=== PATIENT | female | born 1970 | race Caucasian/White ===

== ENCOUNTER → 2018-12-09 07:59 | Outpatient (CLI) | payer OTHER, SELFPAY ==
[2018-12-02 09:21] VITALS: BMI 32.1
[2018-12-09 10:14] LABS: Hematocrit 35.7 % (37-47); Hemoglobin 11.5 g/dl (12.0-15.0); Mean Corp Hgb Conc 32.2 g/gl (32-36); Mean Corpuscular Hgb 26.6 pg (27.0-32.0); Mean Corpuscular Volume 82.4 fL (81-99); Mean Platelet Vol. 9.8 fl (6.2-12.0); Platelet Count 273 K/mm3 (150-450); RBC Distribution Width SD 42.6 fl (35.1-43.9); Red Blood Count 4.33 M/mm3 (4.2-5.4); White Blood Count 5.9 K/mm3 (4.4-11.0)
[2018-12-09 10:15] LABS: Scan Indicated on CBC? Y/N NO
[2018-12-09 10:32] LABS: Anion Gap 6 (5-15); BUN 12 mg/dL (7-18); BUN/Creat Ratio 15.3 RATIO (10-20); Calcium,Total 8.4 mg/dL (8.5-10.1); Chloride 107 mmol/L (98-107); Cholesterol 147 mg/dL (200); Creatinine, Serum 0.78 mg/dL (0.55-1.02); EST Glomerular Filtration Rate 84 mL/min (>60); Est Glom Filt Rate - Afr Amer 101 mL/min (>60); Glucose 96 mg/dL (74-106); High Density Lipoprotein 54 mg/dL; Iron 24 ug/dL (50-170); Potassium 4.2 mmol/L (3.5-5.1); Sodium Level 141 mmol/L (136-145); Triglycerides 78 mg/dL; Very Low Density Lipoprotein 16 mg/dL (5-40)
== END ==
PROVIDERS: Family Provider Family Medicine; PCP Family Medicine; Referring Provider Family Medicine; Visit Provider Family Medicine
DX: Z13.220 Encounter for screening for lipoid disorders (principal); D64.9 Anemia, unspecified; Z13.1 Encounter for screening for diabetes mellitus
CPT/HCPCS: 36415; 80048; 80061; 83540; 85027

== ENCOUNTER → 2018-12-28 07:25 | Outpatient (CLI) | payer OTHER, SELFPAY ==
[2018-12-02 09:21] VITALS: BMI 32.1
--- NOTE | 2018-12-28 07:28 | BI_ITS ---
MAMMOGRAPHY - BILATERAL SCREENING REASON FOR EXAM: Female, 48 years old. Routine annual screening examination. PERTINENT HISTORY: Non-contributory. TECHNIQUE: Digital bilateral breast mack (3D mammographic acquisition) in the CC and MLO projections. 2-D mediolateral oblique (MLO) and craniocaudad (CC) views of both breasts were obtained. CAD: Full Field Digital Mammography with Computer Added Detection was performed. COMPARISON: No comparison mammograms available at this time. If any prior films become available, an addendum to this report can be generated. FINDINGS: Breast Composition: There are scattered areas of fibroglandular density. There is a 5.4 mm x 4.8 mm well-defined nodule in the deep upper lateral portion of the right breast. This most likely represents a small cyst. Correlation with ultrasound is recommended. Small left benign appearing axillary lymph nodes. No other significant abnormalities are identified. BI/SCREEN MAMM (CAD) W/MACK BILAT IMPRESSION: 5.4 mm x 4.8 mm well-defined nodule in the right breast as described. Correlation with ultrasound is recommended. ASSESSMENT CATEGORY: BIRADS Category 0: Incomplete. Need additional imaging evaluation. A letter regarding these results will be sent to the patient by the facility within 30 days. Approximately 10% of breast cancers are not detected by mammography. A normal mammogram should not delay biopsy of a clinically suspicious abnormality. [id number] Electronically Signed: Kyree Bell, at 12:28 EDT , Service support ,
== END ==
PROVIDERS: Family Provider Family Medicine; PCP Family Medicine; Referring Provider Family Medicine; Visit Provider Family Medicine
DX: Z12.31 Encounter for screening mammogram for malignant neoplasm of breast (principal)
CPT/HCPCS: 77063; 77067

== ENCOUNTER → 2018-12-31 12:25 | Outpatient (CLI) | payer OTHER, SELFPAY ==
[2018-12-02 09:21] VITALS: BMI 32.1
--- NOTE | 2018-12-31 12:26 | US_ITS ---
STUDY: ULTRASOUND BREAST - RIGHT REASON FOR EXAM: Female, 48 years old. Abnormal screening mammogram. TECHNIQUE: Axial and longitudinal images of the RIGHT breast were performed with a high resolution ultrasound transducer. COMPARISON: Comparison is made with prior mammogram dated December 28, 2018. FINDINGS: RIGHT Breast: The upper mid and outer quadrants of the right breast were examined. There is a 9 mm x 9 mm x 4 mm cyst at the 9:00 position of the breast at 8 cm from nipple. Adjacent to this, there is a 7 mm x 11 mm by 5 mm cyst. This also evidence of a 5 mm x 5 mm x 4 mm cyst at the 10:00 position breast at 8 cm from the nipple. US/Breast Limited Unilateral IMPRESSION: 3 small cysts are seen in the upper outer aspect of the right breast. Routine mammographic follow-up is recommended. ASSESSMENT CATEGORY: BIRADS Category 2: Benign. A letter regarding these results will be sent to the patient by the facility within 30 days. Electronically Signed: Kyree Bell, at 9:47 EDT , Service support ,
== END ==
PROVIDERS: Family Provider Family Medicine; PCP Family Medicine; Referring Provider Family Medicine; Visit Provider Family Medicine
DX: R92.8 Other abnormal and inconclusive findings on diagnostic imaging of breast (principal)
CPT/HCPCS: 76642

== ENCOUNTER → 2019-05-26 | Outpatient (CLI) | payer OTHER, SELFPAY ==
[2018-12-02 09:21] VITALS: BMI 32.1
--- NOTE | 2019-05-26 09:48 | RAD_ITS ---
STUDY: X-RAY - RIGHT KNEE REASON FOR EXAM: Female, 49 years old. Knee pain TECHNIQUE: 4 view(s) of the knee. COMPARISON: None. FINDINGS: Normal visualized distal femur. Normal visualized proximal tibia and fibula. Normal proximal tibiofibular articulation. Normal medial femorotibial compartment. Normal lateral femorotibial compartment. Normal patellofemoral articulation. The soft tissue structures are unremarkable. RAD/Knee 4 or More Views IMPRESSION: Normal x-ray examination of the knee. Electronically Signed: Erica Contreras, at 18:07 EDT Tel , Service support ,
== END | disposition home or self-care (01) ==
LOC: MTRAD 09:46
PROVIDERS: Family Provider Family Medicine; PCP Family Medicine; Referring Provider Family Medicine; Visit Provider Family Medicine
DX: M25.561 Pain in right knee (principal)
CPT/HCPCS: 73564

== ENCOUNTER → 2019-05-31 07:18 | Outpatient (CLI) | payer SELFPAY ==
[2018-12-02 09:21] VITALS: BMI 32.1
--- NOTE | 2019-05-31 07:20 | MRI_ITS ---
HISTORY: Right knee pain. Pain is mostly on the back in the outside. Pain has been ongoing for 2 weeks. Lower hamstring. Pain as throbbing. Left knee surgery in 2011. EXAMINATION: MR Knee W/O Contrast TECHNIQUE: Multiplanar and multisequence MR images of the right knee. IV Contrast dosage and agent: No contrast. Eighth series. 203 images. COMPARISON: X-rays of the right knee from May 26, 2019 FINDINGS: BONE: Abnormal increased T2-weighted signal consistent with marrow edema is present within the lateral aspect of the medial portion of the tibial plateau, extending to the inferior surface of the medial tibial spine. Abnormal increased T2-weighted signal is present within the tibial plateau at the insertion of the posterior cruciate ligament with some hypointense signal on T1 and T2 weighted signal suggesting possible minimal fracture without displacement to that bone. JOINT: A small joint effusion is present. It does not herniate posteriorly. MUSCLES: Unremarkable. MENISCI: The lateral meniscus is minimally degenerated but intact. A horizontal tear is present through the posterior horn of the medial meniscus extending to the inferior articular surface. CRUCIATE LIGAMENTS: Anterior and posterior cruciate ligaments are intact. COLLATERAL LIGAMENTS: The lateral collateral ligament is normal. There is some edema within the origin of the medial collateral ligament with some fluid both deep and superficial to its fibers suggestive of a grade 1 injury. CARTILAGE: Articular cartilage is thinned throughout. , However, it does appear to cover all articular surfaces without denuding. OTHER SOFT TISSUES: A small amount of edema is present within the subcutaneous fat ventral to the patellar ligament MRI/Lower Ext Joint Only (Routine) IMPRESSION: Horizontal tear through the posterior horn of the medial meniscus. Overall mild cartilaginous thinning. Edema consistent with marrow contusion within the medial portion of the tibial plateau, but laterally under the medial tibial spine extending into the insertion of the posterior cruciate ligament. There may be tiny microfractures to the posterior central tibial plateau near the insertion of the PCL at 0252 Reported and signed by: Jatin Orozco MD Electronically Signed: Jatin Orozco MD at 2:51 EST Tel , Service support ,
== END ==
PROVIDERS: Family Provider Family Medicine; PCP Family Medicine; Referring Provider Family Medicine; Visit Provider Family Medicine
DX: M25.561 Pain in right knee (principal)
CPT/HCPCS: 73721

== ENCOUNTER 2019-08-12 17:00 | Outpatient (RCR) | payer OTHER, SELFPAY ==
[2018-12-02 09:21] VITALS: BMI 32.1
--- NOTE | 2019-07-14 18:04 | HP.PTEVAL ---
Patient's Visit Information ERWIN LAWRENCE is a 49 year old F referred to Physical Therapy by Piyush Silva MD with a diagnosis of R knee meniscal tear. Date of Evaluation: 07/14/19 Physical Therapist: Santana Potter PT, ATC - Visit Plan Frequency: 2-3x /Week Duration: 4-6 Weeks Plan: R knee strengthening, core strenghtening, bike, and HEP - Subjective Findings: Pt reports she tweaked her R knee about 2 months ago. Pt reports she had pain but the pain was not limiting to her. 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 Pt reports she has tweaked her R knee 3 times since the initial injury. Pt reports most of her pain is on the lateral posterior aspect of R knee. Pt reports she has had an MRI which revealed a meniscus tear, but not where her pain is at. No sleep difficulty secondary to pain. Pt reports increase walking and standing tends to increase her pain. - Pain R knee Pain Intensity (Out of 10): 1 Pain Intensity Range: 4 - Objective Neuro: B LE sensation is WNL to light touch. B patellar reflex= 2/3. Palpation: Pain on the posterior lateral aspect of R knee. Girth at joint line: B knees 43 cm. ROM: L knee 0-120 degrees. R knee 0-115 degrees. MMT: R knee flexion= 4/5. All other B LE measurements 5/5 throughout - Goals Goal 1:: Decrease R knee pain x 50% to aid with ambulation Goal Time Frame: 4-6 Weeks Goal 2:: Increase R knee strength x 1 grade to aid with sports Goal Time Frame: 4-6 Weeks Goal 3:: I with HEP Goal Time Frame: 4-6 Weeks - Rehabilitation Potential Physical Therapy Diagnosis: R knee pain, weakness, and limited ROM wsecondary to R knee meniscal tear Rehabilitation Potential: Good - Anticipated Interventions Patient/Client Instruction: Educate patient on: Condition, Plan of Care For the Purpose of:: To improve self management Therapeutic Exercise to Include: Strength training, Endurance training, Balance training, Dynamic Lumbar Stabilization For the Purpose of:: To decrease pain, To increase ROM, To improve muscle performance and motor function Cryotherapy (ice pack, ice massage): Yes For the Purpose of:: To decrease pain Thank you for the opportunity to evaluate your patient. For Medicare and Medicare HMO plans, please review the plan of care and approve it. It will need to be FAXED BACK to us at [phone] for Medicare purposes. For Medicare only, by signing this I certify the plan of care. Please let me know if there are questions or concerns regarding this plan of care. Physician Signature: Date:
--- NOTE | 2019-10-15 08:02 | HP.PT.NRP ---
ERWIN LAWRENCE was seen in my office for initial evaluation on 07/14/19. The following Plan of Care was established for this patient: Initial Frequency: 2-3x /Week Initial Duration: 4-6 Weeks Patient/Client Instruction: Educate patient on: Condition, Plan of Care For the Purpose of:: To improve self management Therapeutic Exercise to Include: Strength training, Endurance training, Balance training, Dynamic Lumbar Stabilization For the Purpose of:: To decrease pain, To increase ROM, To improve muscle performance and motor function Cryotherapy (ice pack, ice massage): Yes For the Purpose of:: To decrease pain This patient was last seen in our office . Pertinent comments regarding their Physical therapy will appear below: Pt was treated for 8 visits for R knee pain through the date of 08/12/19. Pt has not returned through this date and is discontinued at this time. At this point I will be discontinuing this patient from physical therapy. I would be happy to see this patient again in the future if found appropriate by the physician. Thank you! Santana Potter, PT, ATC
== END 2019-08-12 19:00 | disposition home or self-care (01) ==
LOC: PT 17:00
PROVIDERS: Family Provider Family Medicine; PCP Family Medicine; Referring Provider Orthopaedic Surgery; Visit Provider Orthopaedic Surgery
DX: S80.01XD Contusion of right knee, subsequent encounter (principal); S83.231D Complex tear of medial meniscus, current injury, right knee, subsequent encounter
CPT/HCPCS: 97110; 97161